=== PATIENT | female | born 1940 | race Caucasian/White ===

== ENCOUNTER 2016-09-21 15:29 | Inpatient (IN) | payer MEDICARE ==
[~2016-09-21] VITALS: Ht 162.6 cm; Wt 66.4 kg
[~2016-09-21 15:29] MED LIST: ASPIRIN E.C. 8181 MG PO; CALCIUM WITH VI1 TAB PO; CALTRATE 600 +1 TAB PO; CALTRATE 600600 MG PO; CENTRUM SILVER CHEW PO; CENTRUM SILVER1 CTB PO; FEMARA PO; FISH OIL1 IU PO; FLEXERIL5 MG PO; GLUCOSAMINE & C1 CA1 PO; GLUCOSAMINE CHO1 CAP PO; HYDROCORTISO28.35 G1 TP; IMODIUM 2MG CAPS2 MG PO; LEVOXYL0.125 MG PO; LEVOXYL0.137 MG PO; LORTAB 5/500 501 TAB PO; MAGNESIUM100 MG PO; MOBIC15 MG PO; NEOSPORIN1 OI1 TP; OCEAN NASAL SPR45 ML NS; OMEGA 31000 MG PO; OS-CAL 500 + D1 TAB PO; PEPCID 20MG TAB20 MG PO; PREVACID 15MG15 M1; PREVACID 15MG15 M1 PO; PROBIOTIC FORMU1 CAP PO; PROBIOTICA100 Milli1 PO; TIAZAC180 MG PO; TYLENOL 325MG325 MG PO; VAGIFEM10 MCG VG; ZETIA 10MG TAB10 MG PO; ZITHROMAX500 M2 PO
[2016-11-23] VITALS (12 sets, daily range): BP systolic 100–133; BP diastolic 41–75; PULSE 77–105; TEMP 97–98.7
[2016-11-24 03:20] VITALS: BP 97/46; PULSE 104; TEMP 99.7
[2016-11-24 06:37] LABS: HEMOGLOBIN 10.5 g/dl (12.5-16.0)
[2016-11-24] MEDS ORDERED: ASPI325T6 PO (07:27)
[2016-11-24] MEDS ORDERED: ULTRAM 50MG TAB50 MG PO (07:28)
[2016-11-24] MEDS ORDERED: NORCO 325 MG-7.1 TAB PO (07:28)
[2016-11-24 07:30] VITALS: BP 94/60; PULSE 100; TEMP 98.2
[2016-11-24 11:42] VITALS: BP 84/51; PULSE 89; TEMP 98.3
[2016-11-24 15:59] VITALS: BP 90/52; PULSE 88; TEMP 99.2
[2016-11-24 20:36] VITALS: BP 104/41; PULSE 87; TEMP 98.2
[2016-11-25 04:33] VITALS: BP 104/43; PULSE 58; TEMP 98.5
[2016-11-25 07:21] VITALS: BP 95/47; PULSE 89; TEMP 98.5
[2016-11-25 08:11] LABS: HEMATOCRIT 29.2 % (37.0-47.0); HEMOGLOBIN 9.5 g/dl (12.5-16.0)
[2016-11-25 11:30] VITALS: BP 104/44; PULSE 93; TEMP 98.2
== END 2016-11-25 15:30 | disposition home or self-care (01) | DRG 470 ==
LOC: JCC 11-23 07:30 → INPTSU 11-23 11:02 → JCC 11-23 13:15
PROVIDERS: Orthopaedic Surgery; Physician Assistant
PROC: 0SR90JA Replacement of Right Hip Joint with Synthetic Substitute, Uncemented, Open Approach (ICD-10-PCS; principal; 2016-11-23 13:15)
DX: M16.11 Unilateral primary osteoarthritis, right hip (principal); M70.61 Trochanteric bursitis, right hip; M06.9 Rheumatoid arthritis, unspecified; E78.5 Hyperlipidemia, unspecified; M79.7 Fibromyalgia; E06.3 Autoimmune thyroiditis
CPT/HCPCS: A4315; A9284; C1713; C1776; J0690; J1885; J2250; J2405; J2704; J3010; J7120

== ENCOUNTER → 2016-10-24 | Outpatient (CLI) | payer MEDICARE ==
[~2016-10-24] MED LIST changes: +ASPI325T6 PO; +NORCO 325 MG-7.1 TAB PO; +ULTRAM 50MG TAB50 MG PO
== END ==
LOC: COL.RAD 10-20 09:00
DX: M51.36 Other intervertebral disc degeneration, lumbar region (principal); M79.604 Pain in right leg

== ENCOUNTER → 2016-11-16 | Outpatient (CLI) | payer MEDICARE | LOC: COL.LAB 11:58 | DX: Z47.89 Encounter for other orthopedic aftercare (principal); M25.851 Other specified joint disorders, right hip ==

== ENCOUNTER → 2017-04-18 | Outpatient (CLI) | payer MEDICARE | LOC: COL.RAD 11:05 | DX: L57.9 Skin changes due to chronic exposure to nonionizing radiation, unspecified (principal) ==

== ENCOUNTER → 2017-05-25 | Outpatient (CLI) | payer MEDICARE | LOC: MC.RAD 10:43 | DX: N63 Unspecified lump in breast (principal); Z90.11 Acquired absence of right breast and nipple; Z92.3 Personal history of irradiation; Z85.3 Personal history of malignant neoplasm of breast ==

== ENCOUNTER → 2017-10-04 | Outpatient (CLI) | payer MEDICARE | LOC: MC.RAD 09:52 | DX: Z12.31 Encounter for screening mammogram for malignant neoplasm of breast (principal); Z85.3 Personal history of malignant neoplasm of breast; Z98.890 Other specified postprocedural states; Z92.3 Personal history of irradiation ==

== ENCOUNTER 2018-02-14 14:45 | Outpatient (RCR) | payer MEDICARE | END 2018-02-23 16:49 | disposition home or self-care (01) | LOC: WSPT 14:45 | DX: M25.552 Pain in left hip (principal); M79.672 Pain in left foot | CPT/HCPCS: G8978-GP; G8979-GP; G8980-GP ==

== ENCOUNTER → 2018-04-23 | Outpatient (CLI) | payer MEDICARE | LOC: COL.VAS 04-20 14:15 | DX: I35.1 Nonrheumatic aortic (valve) insufficiency (principal) ==

== ENCOUNTER 2018-08-03 10:00 | Outpatient (RCR) | payer MEDICARE | END 2018-08-17 09:22 | disposition home or self-care (01) | LOC: WSPT 10:00 | DX: I89.0 Lymphedema, not elsewhere classified (principal); Z85.3 Personal history of malignant neoplasm of breast; Z90.11 Acquired absence of right breast and nipple; Z98.890 Other specified postprocedural states | CPT/HCPCS: G8981-GP; G8982-GP; G8983-GP ==

== ENCOUNTER → 2018-10-08 | Outpatient (CLI) | payer MEDICARE | LOC: MC.RAD 09:20 | DX: Z12.31 Encounter for screening mammogram for malignant neoplasm of breast (principal); Z98.890 Other specified postprocedural states; Z85.3 Personal history of malignant neoplasm of breast ==

== ENCOUNTER 2018-12-07 11:00 | Outpatient (RCR) | payer MEDICARE | END 2018-12-07 11:13 | disposition home or self-care (01) | LOC: WSPT 11:00 | DX: I89.0 Lymphedema, not elsewhere classified (principal); Z85.3 Personal history of malignant neoplasm of breast; Z90.11 Acquired absence of right breast and nipple ==

== ENCOUNTER 2019-09-10 11:15 | Outpatient (RCR) | payer MEDICARE | END 2019-09-18 | disposition home or self-care (01) | LOC: WSPT | DX: I89.0 Lymphedema, not elsewhere classified (principal); M32.9 Systemic lupus erythematosus, unspecified; K21.9 Gastro-esophageal reflux disease without esophagitis; G47.00 Insomnia, unspecified; M79.7 Fibromyalgia; R22.31 Localized swelling, mass and lump, right upper limb; Z68.26 Body mass index [BMI] 26.0-26.9, adult; Z85.3 Personal history of malignant neoplasm of breast ==

== ENCOUNTER → 2019-10-10 | Outpatient (CLI) | payer MEDICARE | LOC: MC.RAD 10:54 | DX: Z12.31 Encounter for screening mammogram for malignant neoplasm of breast (principal) ==

== ENCOUNTER 2019-12-12 11:15 | Outpatient (RCR) | payer MEDICARE | END 2020-01-13 | disposition home or self-care (01) | LOC: WSPT | DX: I89.0 Lymphedema, not elsewhere classified (principal) ==

== ENCOUNTER 2020-02-12 13:00 | Outpatient (RCR) | payer MEDICARE | END 2020-05-12 | disposition home or self-care (01) | LOC: WSPT | DX: I97.2 Postmastectomy lymphedema syndrome (principal); Z85.3 Personal history of malignant neoplasm of breast; M79.7 Fibromyalgia ==

== ENCOUNTER 2020-04-23 13:00 | Outpatient (RCR) | payer MEDICARE | END 2020-05-12 | disposition still patient (30) | LOC: WSPT | DX: I89.0 Lymphedema, not elsewhere classified (principal) ==

== ENCOUNTER 2020-07-13 12:45 | Outpatient (RCR) | payer MEDICARE | END 2020-08-12 | disposition home or self-care (01) | LOC: WSPT | DX: I89.0 Lymphedema, not elsewhere classified (principal) ==

== ENCOUNTER 2020-10-07 15:51 | Outpatient (RCR) | payer MEDICARE | END 2020-10-12 | disposition still patient (30) | LOC: WSPT | DX: I89.0 Lymphedema, not elsewhere classified (principal) ==

== ENCOUNTER → 2020-10-12 | Outpatient (CLI) | payer MEDICARE | LOC: MC.RAD 10:30 | DX: Z12.31 Encounter for screening mammogram for malignant neoplasm of breast (principal) ==

== ENCOUNTER 2021-01-11 12:45 | Outpatient (RCR) | payer MEDICARE | END 2021-01-14 | disposition still patient (30) | LOC: WSPT | DX: I89.0 Lymphedema, not elsewhere classified (principal) ==

== ENCOUNTER 2021-03-30 08:30 | Outpatient (RCR) | payer MEDICARE | END 2021-04-20 | disposition home or self-care (01) | LOC: WSPT | DX: I35.1 Nonrheumatic aortic (valve) insufficiency (principal); G47.00 Insomnia, unspecified; M32.9 Systemic lupus erythematosus, unspecified; I10 Essential (primary) hypertension; K21.9 Gastro-esophageal reflux disease without esophagitis; C50.919 Malignant neoplasm of unspecified site of unspecified female breast; M79.7 Fibromyalgia; F41.9 Anxiety disorder, unspecified; M51.37 Other intervertebral disc degeneration, lumbosacral region ==

== ENCOUNTER → 2021-04-20 14:15 | Outpatient (RCR) | payer MEDICARE | END | disposition home or self-care (01) | LOC: WSPT 01-25 12:45 | DX: M48.061 Spinal stenosis, lumbar region without neurogenic claudication (principal); M51.36 Other intervertebral disc degeneration, lumbar region ==

== ENCOUNTER → 2021-10-22 | Outpatient (CLI) | payer MEDICARE | LOC: MC.RAD 13:36 | DX: Z12.31 Encounter for screening mammogram for malignant neoplasm of breast (principal); Z85.3 Personal history of malignant neoplasm of breast; Z98.890 Other specified postprocedural states; Z92.3 Personal history of irradiation ==

== ENCOUNTER 2022-02-02 13:00 | Outpatient (RCR) | payer MEDICARE | END 2022-02-05 | disposition home or self-care (01) | LOC: WSPT | DX: I89.0 Lymphedema, not elsewhere classified (principal) ==

== ENCOUNTER 2022-03-02 13:00 | Outpatient (RCR) | payer MEDICARE | END 2022-03-08 | disposition still patient (30) | LOC: WSPT | DX: I89.0 Lymphedema, not elsewhere classified (principal) ==

== ENCOUNTER 2022-04-05 15:00 | Outpatient (RCR) | payer MEDICARE | END 2022-04-07 | disposition home or self-care (01) | LOC: WSPT | DX: I89.0 Lymphedema, not elsewhere classified (principal) ==

== ENCOUNTER 2022-05-02 15:45 | Outpatient (RCR) | payer MEDICARE | END 2022-05-08 | disposition home or self-care (01) | LOC: WSPT | DX: I89.0 Lymphedema, not elsewhere classified (principal) ==

== ENCOUNTER → 2022-11-03 | Outpatient (CLI) | payer MEDICARE | LOC: MC.RAD 09:40 | DX: Z12.31 Encounter for screening mammogram for malignant neoplasm of breast (principal) ==

== ENCOUNTER 2022-11-04 15:45 | Outpatient (RCR) | payer MEDICARE | END 2022-11-08 | disposition home or self-care (01) | LOC: WSPT | DX: I89.0 Lymphedema, not elsewhere classified (principal) ==

== ENCOUNTER → 2023-01-09 | Outpatient (CLI) | payer MEDICARE | LOC: COL.RAD 10:59 | DX: R22.2 Localized swelling, mass and lump, trunk (principal) ==

== ENCOUNTER 2023-06-26 14:30 | Outpatient (RCR) | payer MEDICARE | END 2023-07-08 | disposition home or self-care (01) | LOC: WSPT | DX: I89.0 Lymphedema, not elsewhere classified (principal) ==

== ENCOUNTER → 2023-11-06 | Outpatient (CLI) | payer MEDICARE | LOC: MC.RAD 13:15 | DX: Z12.31 Encounter for screening mammogram for malignant neoplasm of breast (principal) ==

== ENCOUNTER → 2023-11-08 | Outpatient (RCR) | payer MEDICARE | END | disposition home or self-care (01) | LOC: WSPT | DX: I89.0 Lymphedema, not elsewhere classified (principal) ==

== ENCOUNTER 2023-12-01 15:00 | Outpatient (RCR) | payer MEDICARE | END 2023-12-07 | disposition home or self-care (01) | LOC: WSPT | DX: I89.0 Lymphedema, not elsewhere classified (principal) ==

== ENCOUNTER 2023-12-14 12:59 | Outpatient (RCR) | payer MEDICARE | END 2024-01-07 | disposition home or self-care (01) | LOC: WSPT | DX: I89.0 Lymphedema, not elsewhere classified (principal) ==

== ENCOUNTER → 2024-02-13 | Outpatient (CLI) | payer MEDICARE | LOC: COL.RAD 12:32 | DX: R13.10 Dysphagia, unspecified (principal) ==

== ENCOUNTER 2024-02-23 13:45 | Outpatient (RCR) | payer MEDICARE | END 2024-03-08 | LOC: WSPT | DX: M32.19 Other organ or system involvement in systemic lupus erythematosus (principal); M48.061 Spinal stenosis, lumbar region without neurogenic claudication; G62.9 Polyneuropathy, unspecified; Z91.81 History of falling; Z92.21 Personal history of antineoplastic chemotherapy ==